=== PATIENT | female | born 1980 | race Native Hawaiian/Other Pacific Islander ===

== ENCOUNTER 2016-04-27 18:29 | Emergency (ER) | payer OTHER ==
[~2016-04-27] VITALS: Ht 149.9 cm; Wt 74.4 kg
[2016-04-27 19:21] LABS: PLATELET COUNT 412 K/uL (152-353)
[2016-04-27 19:54] LABS: POTASSIUM 3.5 mmol/L (3.6-5.2); SODIUM 132 mmol/L (136-145)
[2016-04-27 20:14] VITALS: BP 139/80; TEMP 100.1
== END 2016-04-27 20:20 | disposition home or self-care (01) ==
LOC: ED 18:29
DX: J06.9 Acute upper respiratory infection, unspecified (principal)
CPT/HCPCS: 36415; 80053; 85027; 87081; 87804; 87880; 99283

== ENCOUNTER 2017-08-29 23:08 | Emergency (ER) | payer OTHER ==
[~2017-08-29] VITALS: Ht 149.9 cm; Wt 73.5 kg
[2017-08-29 23:28] VITALS: TEMP 97.7
[2017-08-30 00:46] VITALS: BP 125/88
== END 2017-08-30 00:47 | disposition home or self-care (01) ==
LOC: ED 23:08
DX: R10.13 Epigastric pain (principal); K21.9 Gastro-esophageal reflux disease without esophagitis
CPT/HCPCS: 99282

== ENCOUNTER 2018-01-13 03:40 | Inpatient (IN) | payer OTHER ==
[~2018-01-13] VITALS: Ht 149.9 cm; Wt 85.8 kg
[2018-01-13 03:52] VITALS: BP 163/91; TEMP 97.3
[2018-01-13 04:28] LABS: PLATELET COUNT 337 K/uL (152-353)
[2018-01-13 05:05] LABS: POTASSIUM 3.2 mmol/L (3.6-5.2)
[2018-01-13 08:19] VITALS: BP 120/70; TEMP 98.6; Ht 149.9 cm; Wt 85.8 kg
[2018-01-13] MEDS ORDERED: ALBUTEROL0.083 % INH (08:27)
[2018-01-13 20:30] VITALS: BP 111/65; TEMP 98.5
[2018-01-14] VITALS (11 sets, daily range): BP systolic 110–145; BP diastolic 46–90; TEMP 98–98.8
[2018-01-14 05:55] LABS: PLATELET COUNT 320 K/uL (152-353)
[2018-01-14 06:07] LABS: POTASSIUM 3.7 mmol/L (3.6-5.2)
[2018-01-15 00:48] VITALS: BP 119/69; TEMP 98.3
[2018-01-15 05:26] VITALS: BP 115/68; TEMP 98.8
[2018-01-15 06:08] LABS: PLATELET COUNT 274 K/uL (152-353)
[2018-01-15 06:49] LABS: POTASSIUM 3.5 mmol/L (3.6-5.2)
[2018-01-15 12:09] VITALS: BP 124/70; TEMP 97.7
[2018-01-15 20:00] VITALS: BP 110/66; TEMP 99.9
[2018-01-16 00:05] VITALS: BP 111/67; TEMP 98.4
[2018-01-16 04:00] VITALS: BP 98/52; TEMP 99
[2018-01-16 06:08] LABS: PLATELET COUNT 251 K/uL (152-353)
[2018-01-16 06:35] LABS: POTASSIUM 3.5 mmol/L (3.6-5.2)
[2018-01-16 20:02] VITALS: BP 131/62; TEMP 97.5
[2018-01-17 00:40] VITALS: BP 153/69; TEMP 98.7
[2018-01-17 04:07] VITALS: BP 180/66; TEMP 98.3
[2018-01-17 05:51] LABS: PLATELET COUNT 259 K/uL (152-353)
[2018-01-17 06:07] LABS: POTASSIUM 3.1 mmol/L (3.6-5.2)
[2018-01-17 07:21] LABS: POTASSIUM 3.1 mmol/L (3.6-5.2)
[2018-01-17 20:01] VITALS: BP 132/60; TEMP 98.3
[2018-01-18 00:48] VITALS: BP 102/60; TEMP 98.8
[2018-01-18 04:11] VITALS: BP 118/70; TEMP 98.5
[2018-01-18 05:40] LABS: PLATELET COUNT 316 K/uL (152-353)
[2018-01-18 05:53] LABS: POTASSIUM 3.1 mmol/L (3.6-5.2)
[2018-01-18 08:22] VITALS: BP 138/55; BP 97/51; TEMP 98.3; TEMP 98.4
[2018-01-18] MEDS ORDERED: DOCU100C10 PO (09:59)
[2018-01-18] MEDS ORDERED: OXYC5TAB53 PO (09:59)
[2018-01-18] MEDS ORDERED: ONDA4TAB3 PO (10:00)
== END 2018-01-18 11:15 | disposition home or self-care (01) | DRG 415 ==
LOC: ED 03:40 → MED/SURG 07:00
PROVIDERS: Student in an Organized Health Care Education/Training Program; ADMIT Family Medicine
PROC: 0FT40ZZ Resection of Gallbladder, Open Approach (ICD-10-PCS; principal; 2018-01-14)
PROC: 0FJ44ZZ Inspection of Gallbladder, Percutaneous Endoscopic Approach (ICD-10-PCS; 2018-01-14)
DX: K80.10 Calculus of gallbladder with chronic cholecystitis without obstruction (principal); J98.11 Atelectasis; K66.0 Peritoneal adhesions (postprocedural) (postinfection); K21.9 Gastro-esophageal reflux disease without esophagitis
CPT/HCPCS: 36415; 80053; 81000; 81025; 82150; 83690; 85027; 86318; 94760; 96372; 99284; J0132; J0295; J0330; J1100; J1170; J1644; J1650; J1885; J1940; J2001; J2175; J2250; J2270; J2405; J2543; J2704; J3010; J3490; J7120; Q9963

== ENCOUNTER 2019-06-04 22:37 | Emergency (ER) | payer OTHER ==
[~2019-06-04] VITALS: Ht 149.9 cm; Wt 82.1 kg
[~2019-06-04 22:37] MED LIST: ALBUTEROL0.083 % INH; DOCU100C10 PO; ONDA4TAB3 PO; OXYC5TAB53 PO
[2019-06-04 23:15] LABS: PLATELET COUNT 353 K/uL (152-353)
[2019-06-04 23:29] LABS: POTASSIUM 3.9 mmol/L (3.6-5.2)
[2019-06-05 01:43] VITALS: BP 121/75; TEMP 98.6
== END 2019-06-05 01:50 | disposition home or self-care (01) ==
LOC: ED 22:37
PROVIDERS: Family Medicine
DX: K52.3 Indeterminate colitis (principal); K57.90 Diverticulosis of intestine, part unspecified, without perforation or abscess without bleeding
CPT/HCPCS: 80053; 81000; 81025; 85027; 96365; 99282; 99284; J1885

== ENCOUNTER 2020-10-24 16:20 | Emergency (ER) | payer OTHER ==
[~2020-10-24] VITALS: Ht 149.9 cm; Wt 77.1 kg
[2020-10-24 16:33] VITALS: BP 147/87; TEMP 98.9
== END 2020-10-24 16:45 | disposition home or self-care (01) ==
LOC: ED 16:20
DX: Z53.21 Procedure and treatment not carried out due to patient leaving prior to being seen by health care provider (principal); U07.1 COVID-19; R11.10 Vomiting, unspecified
CPT/HCPCS: 99281

== ENCOUNTER 2022-01-16 20:17 | Emergency (ER) | payer OTHER ==
[~2022-01-16] VITALS: Ht 149.9 cm; Wt 76.2 kg
[2022-01-16 21:23] LABS: PLATELET COUNT 359 K/uL (152-353)
[2022-01-16 21:34] LABS: POTASSIUM 3.5 mmol/L (3.6-5.2)
[2022-01-16 21:47] LABS: PARTIAL THROMBOPLASTIN TIME 25.6 SECONDS (24.5-33.6)
[2022-01-16 22:35] VITALS: BP 121/75; TEMP 98.9
== END 2022-01-16 22:40 | disposition home or self-care (01) ==
LOC: ED 20:17
PROVIDERS: Emergency Medicine
DX: J45.901 Unspecified asthma with (acute) exacerbation (principal); R06.02 Shortness of breath
CPT/HCPCS: 36415; 80053; 81002; 81025; 83880; 84484; 85027; 85610; 85730; 87502; 93005; 94664; 96372; 99283; J1885; J2930